=== PATIENT | male | born 1965 | race Caucasian/White ===

== ENCOUNTER 2023-07-14 08:55 | Emergency (ER) | payer SELFPAY ==
[~2023-07-14] VITALS: Ht 185.4 cm; Wt 68.0 kg
[~2023-07-14 08:55] MED LIST: LORTAB 5 OR; PENICILLN VK500 MG OR; TYLENOL500 MG OR
[2023-07-14 10:13] VITALS: BP 127/99
[2023-07-14 10:15] VITALS: BP 137/90
[2023-07-14 10:30] VITALS: BP 135/89
[2023-07-14 10:45] VITALS: BP 142/85
[2023-07-14] MEDS ORDERED: LIDOcaine HCl 1% (Local Anesth.) 20 ML VIAL STI STA (10:56)
[2023-07-14] MEDS ORDERED: CEPHALEXIN500 M1 PO (10:57)
[2023-07-14] MEDS ORDERED: BACTRIM DS1 TAB PO (10:57)
[2023-07-14] MEDS ORDERED: POVIDONE IODINE 0.5 OZ/BTL TOP ONE (11:00)
[2023-07-14 11:29] VITALS: BP 142/85
== END 2023-07-14 11:45 | disposition home or self-care (01) | DRG 603 ==
LOC: ED 08:55
PROC: 0H94XZZ Drainage of Neck Skin, External Approach (ICD-10-PCS; principal; 2023-07-14)
DX: L02.11 Cutaneous abscess of neck (principal)